=== PATIENT | female | born 1945 | race African-American/Black ===

== ENCOUNTER 2017-11-09 06:20 | Observation (INO) ==
[2017-11-09] MEDS ORDERED: DIAZEPAM 5 MG TABLET PO ONE (07:10)
[2017-11-09 07:27] LABS: Basophils # 0.1 10*3/uL (0.0-0.2); Basophils % 0.9 % (0.0-0.8); Eosinophils # 0.1 10*3/uL (0.0-0.87); Eosinophils % 1.7 % (0.00-10.9); Hematocrit 34.4 VOL% (35.7-47.0); Hemoglobin 11.4 GM/DL (12.0-16.0); Immature Granulocytes % 0.2 %; Immature Granulocytes Absolute 0.01 #; Lymphocytes # 2.1 10*3/uL (1.4-4.0); Lymphocytes % 38.8 % (21.3-54.2); Mean Corpuscular HGB Conc 33.1 GM/DL (32-36); Mean Corpuscular Hemoglobin 32 PG (27-34); Mean Corpuscular Volume 95.8 FL (87-102); Mean Platelet Volume 9.9 FL (9.6-12.0); Monocytes # 0.3 10*3/uL (0.11-0.8); Monocytes % 5.9 % (1.7-12.7); Neutrophils # 2.8 10*3/uL (1.4-7.4); Neutrophils % 52.5 % (38.7-73.9); Platelet Count 213 T/CUMM (130-400); Red Blood Count 3.59 MC/CUMM (3.8-5.5); White Blood Count 5.3 T/CUMM (4-12)
[2017-11-09] MEDS ORDERED: SODIUM CHLORIDE 0.45% 1,000 ML IV SCH (07:30)
[2017-11-09 07:35] LABS: INR 0.9
[2017-11-09] MEDS ORDERED: DIAZEPAM 5 MG TABLET ONE (08:42)
[2017-11-09] MEDS: SODIUM CHLORIDE 0.45% 1,000 ML IV SCH (08:55)
[2017-11-10 07:25] VITALS: BP 133/82
[2017-11-10] MEDS: SODIUM CHLORIDE 0.45% 1,000 ML IV SCH (10:48)
== END 2017-11-10 11:29 | disposition home or self-care (01) ==
LOC: N.5E 06:20 → N.RAD 06:20 → N.SDSINP 06:22 → N.5E 17:35
PROVIDERS: ADMIT Radiology Diagnostic Radiology; ATTEND Radiology Diagnostic Radiology

== ENCOUNTER 2017-12-07 04:00 | Inpatient (IN) ==
[2017-12-05 11:34] LABS: Basophils # 0.1 10*3/uL (0.0-0.2); Basophils % 1.6 % (0.0-0.8); Eosinophils # 0.1 10*3/uL (0.0-0.87); Eosinophils % 2.3 % (0.00-10.9); Hematocrit 36.6 VOL% (35.7-47.0); Hemoglobin 12.1 GM/DL (12.0-16.0); Immature Granulocytes % 0.2 %; Immature Granulocytes Absolute 0.01 #; Lymphocytes # 2.1 10*3/uL (1.4-4.0); Lymphocytes % 42.8 % (21.3-54.2); Mean Corpuscular HGB Conc 33.1 GM/DL (32-36); Mean Corpuscular Hemoglobin 32 PG (27-34); Mean Corpuscular Volume 97.6 FL (87-102); Mean Platelet Volume 9.6 FL (9.6-12.0); Monocytes # 0.4 10*3/uL (0.11-0.8); Monocytes % 7.2 % (1.7-12.7); Neutrophils # 2.2 10*3/uL (1.4-7.4); Neutrophils % 45.9 % (38.7-73.9); Platelet Count 223 T/CUMM (130-400); Red Blood Count 3.75 MC/CUMM (3.8-5.5); Red Cell Distribution Width 12.5 % (9.3-17.3); White Blood Count 4.9 T/CUMM (4-12)
[2017-12-05 11:46] LABS: INR 0.9; Partial Thromboplastin Time 24.7 SECS (0-40)
[2017-12-05 11:58] LABS: Apearance,Urine Slightly Hazy (Clear); Bacteria,Urine Moderate /HPF (Few); Bilirubin,Urine Negative (Negative); Blood, Urine Negative (Negative); Glucose,Urine (UA) Negative (Negative); Ketones,Urine Negative (Negative); Mucus,Urine Occasional /LPF (Occasional); Nitrite,Urine Negative (Negative); Protein,Urine Negative; RBC,Urine 1 /HPF (0-4); Squamous Epithelial Cell,Urine Occasional /HPF (0-10); Urine Color Yellow (Yellow); Urine Specific Gravity 1.015 (1.001-1.035); Urine Urobilinogen < 2.0 EU/DL (0.2-1.0); WBC,Urine 3 /HPF (0-6)
[2017-12-05 12:07] LABS: Calcium 8.4 MG/DL (8.5-10.1)
[~2017-12-07 04:00] MED LIST: SODIUM CHLORIDE 0.9% 1,000 ML IV PRN
[2017-12-07] MEDS ORDERED: TISSUE ADHESIVE 1 EACH APPLICATOR TOP ONE (06:13)
[2017-12-07] MEDS ORDERED: BUPIVACAINE LIPOSOMAL 20 ML/266 MG VIAL ONE (06:13)
[2017-12-07] MEDS ORDERED: LACTATED RINGERS 1,000 ML IV SCH (06:30)
[2017-12-07] MEDS ORDERED: FAMOTIDINE 20 MG TABLET PO ONE (06:40)
[2017-12-07] MEDS ORDERED: DIAZEPAM 5 MG TABLET PO ONE (06:40)
[2017-12-07] MEDS ORDERED: FAMOTIDINE 20 MG TABLET ONE (06:48)
[2017-12-07] MEDS ORDERED: DIAZEPAM 5 MG TABLET ONE (06:48)
[2017-12-07] MEDS ORDERED: ACETAMINOPHEN INJ 1,000 MG in PREMIX 1 EACH IV ONE (06:50)
[2017-12-07] MEDS ORDERED: CEFUROXIME INJ 1,500 MG in SYRINGE 1 EACH IV ONE (06:50)
[2017-12-07] MEDS ORDERED: ACETAMINOPHEN 1,000 MG/100 ML VIAL IV ONE (06:57)
[2017-12-07] MEDS ORDERED: CEFUROXIME 1,500 MG VIAL ONE (06:57)
[2017-12-07] MEDS ORDERED: fentaNYL 100 MCG/2 ML VIAL ONE ×2 (11:16→11:17)
[2017-12-07] MEDS ORDERED: PROPOFOL 200 MG/20 ML VIAL IV ONE (11:16)
[2017-12-07] MEDS ORDERED: ROCURONIUM 100 MG/10 ML VIAL IV ONE (11:17)
[2017-12-07] MEDS ORDERED: ONDANSETRON 4 MG/2 ML VIAL ONE (11:17)
[2017-12-07] MEDS ORDERED: MIDAZOLAM 2 MG/2 ML VIAL ONE (11:17)
[2017-12-07] MEDS ORDERED: DEXAMETHASONE 10 MG/1 ML VIAL ONE (11:17)
[2017-12-07] MEDS ORDERED: PHENYLEPHRINE 1 MG/10 ML SYRINGE IV ONE (11:17)
[2017-12-07 12:52] LABS: ABG Base Excess 1.6 MMOL/L (-2.5-2.5); ABG HCO3 25.9 MMOL/L (20-26); ABG Oxygen Saturation 99.8 % (95-100); ABG PCO2 44.2 MM HG (35-48); ABG PH 7.392 (7.35-7.45); ABG TCO2 24.1 MMOL/L (23-27); Glucose Heart Surgery 170 MG/DL (74-106); Hematocrit Heart Surgery 34.2 PERCENT (37-47); Hemoglobin Heart Surgery 11.1 G/DL (12.0-16.0); Potassium Heart/CVR 3.5 MMOL/L (3.5-5.1)
[2017-12-07] MEDS ORDERED: LACTATED RINGERS 2,000 ML IV ONE (13:18)
[2017-12-07] MEDS ORDERED: PHENYLEPHRINE 10 MG/1 ML VIAL IV ONE (13:18)
[2017-12-07] MEDS ORDERED: LABETALOL 100 MG/20 ML VIAL IV ONE (13:18)
[2017-12-07] MEDS ORDERED: SEVOFLURANE 1 UNIT/15 MINUTE INH ONE (13:18)
[2017-12-07] MEDS ORDERED: SODIUM CHLORIDE 0.9% 200 ML IV ONE (13:18)
[2017-12-07] MEDS ORDERED: ONDANSETRON 4 MG/2 ML VIAL IV PRN ×2 (13:24→13:42)
[2017-12-07] MEDS ORDERED: HYDROmorphone 2 MG/1 ML VIAL ONE (13:30)
[2017-12-07] MEDS: HYDROmorphone 2 MG/1 ML VIAL IV PRN ×2 (13:33→13:40)
[2017-12-07 13:52] LABS: Apearance,Urine CLEAR (Clear); Bilirubin,Urine Negative (Negative); Blood, Urine Negative (Negative); Glucose,Urine (UA) Negative (Negative); Ketones,Urine Negative (Negative); Mucus,Urine Occasional /LPF (Occasional); Nitrite,Urine Negative (Negative); Protein,Urine Negative; Urine Color Straw (Yellow); Urine Specific Gravity 1.005 (1.001-1.035); Urine Urobilinogen < 2.0 EU/DL (0.2-1.0); WBC,Urine <1 /HPF (0-6)
[2017-12-07 14:12] LABS: Basophils % 0.2 % (0.0-0.8); Hematocrit 41.2 VOL% (35.7-47.0); Hemoglobin 13.6 GM/DL (12.0-16.0); Immature Granulocytes % 0.4 %; Immature Granulocytes Absolute 0.07 #; Lymphocytes # 1.4 10*3/uL (1.4-4.0); Lymphocytes % 8.6 % (21.3-54.2); Mean Corpuscular Hemoglobin 31 PG (27-34); Mean Corpuscular Volume 94.5 FL (87-102); Monocytes # 0.5 10*3/uL (0.11-0.8); Monocytes % 3.1 % (1.7-12.7); Neutrophils # 14.6 10*3/uL (1.4-7.4); Neutrophils % 87.7 % (38.7-73.9); Platelet Count 204 T/CUMM (130-400); Red Blood Count 4.36 MC/CUMM (3.8-5.5); Red Cell Distribution Width 14.2 % (9.3-17.3); White Blood Count 16.7 T/CUMM (4-12)
[2017-12-07 14:48] LABS: Osmolality,Calculated 287.4 MOS/KG (273-304); Potassium 3.7 MMOL/L (3.5-5.1)
[2017-12-07] MEDS: KETOROLAC 15 MG/1 ML VIAL IV SCH ×2 (15:53→21:21)
[2017-12-07] MEDS: GABAPENTIN 100 MG CAPSULE PO SCH ×2 (15:54→21:20)
[2017-12-07] MEDS: CEFUROXIME INJ 1,500 MG in SYRINGE 1 EACH IV SCH (21:22)
[2017-12-07] MEDS: ACETAMINOPHEN INJ 1,000 MG in PREMIX 1 EACH IV SCH (22:00)
[2017-12-08] MEDS: KETOROLAC 15 MG/1 ML VIAL IV SCH ×4 (01:54→21:11)
[2017-12-08] MEDS: ACETAMINOPHEN INJ 1,000 MG in PREMIX 1 EACH IV SCH (01:54)
[2017-12-08 04:42] LABS: Basophils % 0.1 % (0.0-0.8); Hematocrit 35.8 VOL% (35.7-47.0); Hemoglobin 12.4 GM/DL (12.0-16.0); Immature Granulocytes % 0.3 %; Immature Granulocytes Absolute 0.04 #; Lymphocytes # 2.5 10*3/uL (1.4-4.0); Lymphocytes % 18.5 % (21.3-54.2); Mean Corpuscular HGB Conc 34.6 GM/DL (32-36); Mean Corpuscular Hemoglobin 31 PG (27-34); Mean Corpuscular Volume 89.7 FL (87-102); Mean Platelet Volume 9.8 FL (9.6-12.0); Monocytes # 0.6 10*3/uL (0.11-0.8); Monocytes % 4.7 % (1.7-12.7); Neutrophils # 10.3 10*3/uL (1.4-7.4); Neutrophils % 76.4 % (38.7-73.9); Platelet Count 194 T/CUMM (130-400); Red Blood Count 3.99 MC/CUMM (3.8-5.5); Red Cell Distribution Width 14.8 % (9.3-17.3); White Blood Count 13.5 T/CUMM (4-12)
[2017-12-08 04:49] LABS: Calcium 7.6 MG/DL (8.5-10.1); Osmolality,Calculated 285.3 MOS/KG (273-304); Potassium 4.1 MMOL/L (3.5-5.1)
[2017-12-08] MEDS ORDERED: traMADol 50 MG TABLET PO PRN (06:00)
[2017-12-08] MEDS: GABAPENTIN 100 MG CAPSULE PO SCH ×3 (09:58→21:08)
[2017-12-08] MEDS: ACETAMINOPHEN 500 MG TABLET PO SCH ×3 (09:58→21:08)
[2017-12-08] MEDS: PANTOPRAZOLE 40 MG VIAL IV SCH (09:59)
[2017-12-08] MEDS: CEFUROXIME INJ 1,500 MG in SYRINGE 1 EACH IV SCH (09:59)
[2017-12-09] MEDS: ACETAMINOPHEN 500 MG TABLET PO SCH ×4 (03:09→20:42)
[2017-12-09] MEDS: KETOROLAC 15 MG/1 ML VIAL IV SCH ×2 (03:09→08:27)
[2017-12-09 05:00] LABS: Basophils # 0.1 10*3/uL (0.0-0.2); Basophils % 0.7 % (0.0-0.8); Eosinophils # 0.2 10*3/uL (0.0-0.87); Eosinophils % 2.6 % (0.00-10.9); Hematocrit 32.7 VOL% (35.7-47.0); Hemoglobin 10.9 GM/DL (12.0-16.0); Immature Granulocytes % 0.4 %; Immature Granulocytes Absolute 0.03 #; Lymphocytes # 2.3 10*3/uL (1.4-4.0); Lymphocytes % 27.9 % (21.3-54.2); Mean Corpuscular HGB Conc 33.3 GM/DL (32-36); Mean Corpuscular Hemoglobin 30 PG (27-34); Mean Corpuscular Volume 91.3 FL (87-102); Mean Platelet Volume 10.5 FL (9.6-12.0); Monocytes # 0.5 10*3/uL (0.11-0.8); Monocytes % 5.4 % (1.7-12.7); Neutrophils # 5.3 10*3/uL (1.4-7.4); Platelet Count 158 T/CUMM (130-400); Red Blood Count 3.58 MC/CUMM (3.8-5.5); Red Cell Distribution Width 14.6 % (9.3-17.3); White Blood Count 8.4 T/CUMM (4-12)
[2017-12-09 05:15] LABS: Calcium 7.6 MG/DL (8.5-10.1); Osmolality,Calculated 281.7 MOS/KG (273-304); Potassium 3.5 MMOL/L (3.5-5.1)
[2017-12-09] MEDS: PANTOPRAZOLE 40 MG VIAL IV SCH (08:26)
[2017-12-09] MEDS: GABAPENTIN 100 MG CAPSULE PO SCH ×3 (08:27→20:42)
[2017-12-09] MEDS: DOCUSATE SODIUM 100 MG CAPSULE PO SCH (20:55)
[2017-12-10] MEDS: ACETAMINOPHEN 500 MG TABLET PO SCH ×4 (01:43→20:56)
[2017-12-10] MEDS: CELECOXIB 200 MG CAPSULE PO SCH ×3 (01:44→20:56)
[2017-12-10 06:03] LABS: Basophils # 0.1 10*3/uL (0.0-0.2); Basophils % 0.9 % (0.0-0.8); Eosinophils # 0.3 10*3/uL (0.0-0.87); Eosinophils % 4.1 % (0.00-10.9); Hemoglobin 10.5 GM/DL (12.0-16.0); Immature Granulocytes % 0.5 %; Immature Granulocytes Absolute 0.03 #; Lymphocytes # 1.9 10*3/uL (1.4-4.0); Lymphocytes % 29.6 % (21.3-54.2); Mean Corpuscular HGB Conc 33.9 GM/DL (32-36); Mean Corpuscular Hemoglobin 31 PG (27-34); Mean Platelet Volume 10.5 FL (9.6-12.0); Monocytes # 0.4 10*3/uL (0.11-0.8); Monocytes % 6.7 % (1.7-12.7); Neutrophils # 3.7 10*3/uL (1.4-7.4); Neutrophils % 58.2 % (38.7-73.9); Platelet Count 162 T/CUMM (130-400); Red Blood Count 3.37 MC/CUMM (3.8-5.5); Red Cell Distribution Width 14.2 % (9.3-17.3); White Blood Count 6.4 T/CUMM (4-12)
[2017-12-10 06:16] LABS: Calcium 7.3 MG/DL (8.5-10.1); Osmolality,Calculated 283.4 MOS/KG (273-304); Potassium 3.7 MMOL/L (3.5-5.1)
[2017-12-10] MEDS: PANTOPRAZOLE 40 MG VIAL IV SCH (08:46)
[2017-12-10] MEDS: GABAPENTIN 100 MG CAPSULE PO SCH ×3 (08:48→20:56)
[2017-12-10] MEDS ORDERED: BISACODYL 5 MG TABLET PO PRN (11:09)
[2017-12-10] MEDS: DOCUSATE SODIUM 100 MG CAPSULE PO SCH ×3 (12:30→20:56)
[2017-12-11] MEDS: ACETAMINOPHEN 500 MG TABLET PO SCH ×2 (02:22→08:43)
[2017-12-11 07:57] VITALS: BP 149/80
[2017-12-11] MEDS: CELECOXIB 200 MG CAPSULE PO SCH (08:43)
[2017-12-11] MEDS: DOCUSATE SODIUM 100 MG CAPSULE PO SCH (08:43)
[2017-12-11] MEDS: GABAPENTIN 100 MG CAPSULE PO SCH (08:43)
[2017-12-11] MEDS: PANTOPRAZOLE 40 MG VIAL IV SCH (08:43)
== END 2017-12-11 13:31 | disposition home health service (06) | DRG 165 ==
LOC: N.SDSINP 05:18 → N.ICU 15:05 → N.TELES 12-08 14:20
PROVIDERS: ADMIT Thoracic Surgery (Cardiothoracic Vascular Surgery); ATTEND Thoracic Surgery (Cardiothoracic Vascular Surgery)

== ENCOUNTER 2018-06-08 10:42 | Inpatient (IN) ==
[2018-06-08] MEDS ORDERED: PANTOPRAZOLE 40 MG VIAL IV STA (11:13)
[2018-06-08 11:58] LABS: Basophils # 0.1 10*3/uL (0.0-0.2); Basophils % 1.6 % (0.0-0.8); Eosinophils # 0.1 10*3/uL (0.0-0.87); Eosinophils % 1.8 % (0.00-10.9); Hematocrit 34.2 VOL% (35.7-47.0); Hemoglobin 11.1 GM/DL (12.0-16.0); Immature Granulocytes % 0.4 %; Immature Granulocytes Absolute 0.02 #; Lymphocytes # 1.5 10*3/uL (1.4-4.0); Mean Corpuscular HGB Conc 32.5 GM/DL (32-36); Mean Corpuscular Hemoglobin 31 PG (27-34); Mean Corpuscular Volume 96.9 FL (87-102); Mean Platelet Volume 9.2 FL (9.6-12.0); Monocytes # 0.3 10*3/uL (0.11-0.8); Monocytes % 6.9 % (1.7-12.7); Neutrophils # 2.9 10*3/uL (1.4-7.4); Neutrophils % 59.3 % (38.7-73.9); Platelet Count 277 T/CUMM (130-400); Red Blood Count 3.53 MC/CUMM (3.8-5.5); Red Cell Distribution Width 14.8 % (9.3-17.3); White Blood Count 4.9 T/CUMM (4-12)
[2018-06-08 12:06] LABS: PT Patient Result 10.5 SECS; Partial Thromboplastin Time 24.1 SECS (0-40)
[2018-06-08 12:17] LABS: Alanine Aminotransferase 16 U/L (13-56); Alkaline Phosphatase 49 U/L (45-117); Aspartate Amino Transferase 16 U/L (0-37); Bilirubin,Total < 0.39 MG/DL (0.2-1.0); Blood Urea Nitrogen 13 MG/DL (7-18); Calcium 8.9 MG/DL (8.5-10.1); Glucose 97 MG/DL (74-106); Osmolality,Calculated 280.3 MOS/KG (273-304); Potassium 3.1 MMOL/L (3.5-5.1); Sodium 141 MMOL/L (136-145)
[2018-06-08] MEDS ORDERED: ONDANSETRON 4 MG/2 ML VIAL IV PRN (14:43)
[2018-06-08] MEDS ORDERED: POTASSIUM CHLORIDE 10 MEQ TABLET PO SCH (15:00)
[2018-06-08] MEDS: SODIUM CHLORIDE 0.9% 1,000 ML IV SCH (16:34)
[2018-06-08 18:52] LABS: Apearance,Urine CLEAR (Clear); Bacteria,Urine Occasional /HPF (Few); Bilirubin,Urine Negative (Negative); Blood, Urine Negative (Negative); Glucose,Urine (UA) Negative (Negative); Ketones,Urine 5 mg/dL (Negative); Nitrite,Urine Negative (Negative); Protein,Urine Negative; RBC,Urine 1 /HPF (0-4); Squamous Epithelial Cell,Urine Occasional /HPF (0-10); Urine Color Straw (Yellow); Urine Specific Gravity 1.008 (1.001-1.035); Urine Urobilinogen < 2.0 EU/DL (0.2-1.0); WBC,Urine 1 /HPF (0-6)
[2018-06-08] MEDS: PANTOPRAZOLE 40 MG VIAL IV SCH (20:10)
[2018-06-09] MEDS: SODIUM CHLORIDE 0.9% 1,000 ML IV SCH ×3 (00:37→16:18)
[2018-06-09 04:45] LABS: Basophils # 0.1 10*3/uL (0.0-0.2); Basophils % 1.9 % (0.0-0.8); Eosinophils # 0.1 10*3/uL (0.0-0.87); Eosinophils % 2.7 % (0.00-10.9); Hematocrit 29.2 VOL% (35.7-47.0); Hemoglobin 9.3 GM/DL (12.0-16.0); Immature Granulocytes % 0.2 %; Immature Granulocytes Absolute 0.01 #; Lymphocytes # 1.4 10*3/uL (1.4-4.0); Lymphocytes % 26.7 % (21.3-54.2); Mean Corpuscular HGB Conc 31.8 GM/DL (32-36); Mean Corpuscular Hemoglobin 31 PG (27-34); Mean Corpuscular Volume 98.3 FL (87-102); Mean Platelet Volume 9.6 FL (9.6-12.0); Monocytes # 0.4 10*3/uL (0.11-0.8); Neutrophils # 3.2 10*3/uL (1.4-7.4); Neutrophils % 60.5 % (38.7-73.9); Platelet Count 237 T/CUMM (130-400); Red Blood Count 2.97 MC/CUMM (3.8-5.5); Red Cell Distribution Width 14.6 % (9.3-17.3); White Blood Count 5.3 T/CUMM (4-12)
[2018-06-09 04:52] LABS: PT Patient Result 10.8 SECS
[2018-06-09 05:16] LABS: Osmolality,Calculated 284.8 MOS/KG (273-304); Potassium 3.1 MMOL/L (3.5-5.1); Risk Ratio 3.83; Thyroid Stimulating Hormone 3.65 uIU/ml (0.358-3.74)
[2018-06-09] MEDS ORDERED: FUROSEMIDE 20 MG/2 ML VIAL IV PRN (06:57)
[2018-06-09] MEDS ORDERED: SODIUM CHLORIDE 0.9% 1,000 ML IV PRN (06:57)
[2018-06-09] MEDS ORDERED: diphenhydrAMINE 50 MG/1 ML VIAL IV PRN (06:57)
[2018-06-09] MEDS ORDERED: POTASSIUM CHLORIDE RIDER 10 MEQ in PREMIX 1 EACH IV PRN (08:24)
[2018-06-09] MEDS: PANTOPRAZOLE 40 MG VIAL IV SCH ×2 (09:58→20:56)
[2018-06-09] MEDS: OLMESARTAN 20 MG TABLET PO SCH (09:58)
[2018-06-09] MEDS: hydroCHLOROthiazide 12.5 MG CAPSULE PO SCH (09:59)
[2018-06-09] MEDS: POTASSIUM CHLORIDE 20 MEQ/15 ML UDCUP PO SCH ×2 (09:59→10:08)
[2018-06-09] MEDS: POTASSIUM CHLORIDE 20 MEQ TABLET PO SCH (11:13)
[2018-06-10] MEDS: SODIUM CHLORIDE 0.9% 1,000 ML IV SCH (04:04)
[2018-06-10 05:58] LABS: Basophils # 0.1 10*3/uL (0.0-0.2); Eosinophils # 0.3 10*3/uL (0.0-0.87); Eosinophils % 6.7 % (0.00-10.9); Hematocrit 28.8 VOL% (35.7-47.0); Hemoglobin 9.2 GM/DL (12.0-16.0); Immature Granulocytes % 0.2 %; Immature Granulocytes Absolute 0.01 #; Lymphocytes # 1.5 10*3/uL (1.4-4.0); Mean Corpuscular HGB Conc 31.9 GM/DL (32-36); Mean Corpuscular Hemoglobin 31 PG (27-34); Mean Platelet Volume 9.5 FL (9.6-12.0); Monocytes # 0.4 10*3/uL (0.11-0.8); Monocytes % 8.7 % (1.7-12.7); Neutrophils # 2.3 10*3/uL (1.4-7.4); Neutrophils % 49.4 % (38.7-73.9); Platelet Count 228 T/CUMM (130-400); Red Blood Count 2.94 MC/CUMM (3.8-5.5); Red Cell Distribution Width 14.6 % (9.3-17.3); White Blood Count 4.6 T/CUMM (4-12)
[2018-06-10 06:09] LABS: PT Patient Result 10.7 SECS
[2018-06-10 06:22] LABS: Calcium 7.9 MG/DL (8.5-10.1); Osmolality,Calculated 287.6 MOS/KG (273-304); Potassium 3.1 MMOL/L (3.5-5.1)
[2018-06-10] MEDS ORDERED: POTASSIUM CHLORIDE 20 MEQ TABLET PO ONE (09:07)
[2018-06-10] MEDS ORDERED: MAGNESIUM SULF RIDER 2 GM in PREMIX 1 EACH IV ONE (09:08)
[2018-06-10] MEDS: PANTOPRAZOLE 40 MG VIAL IV SCH ×2 (09:44→20:27)
[2018-06-10] MEDS: OLMESARTAN 20 MG TABLET PO SCH (09:45)
[2018-06-10] MEDS: hydroCHLOROthiazide 12.5 MG CAPSULE PO SCH (09:45)
[2018-06-10] MEDS: SODIUM CHLORIDE 0.45% 1,000 ML IV SCH ×2 (09:46→23:06)
[2018-06-10] MEDS: POTASSIUM CHLORIDE 20 MEQ TABLET PO SCH (09:46)
[2018-06-10] MEDS: POTASSIUM CHLORIDE 20 MEQ/15 ML UDCUP PO SCH (09:53)
[2018-06-10] MEDS ORDERED: hydroCHLOROthiazide 12.5 MG CAPSULE PO SCH (12:01)
[2018-06-11 05:10] LABS: Basophils # 0.1 10*3/uL (0.0-0.2); Basophils % 1.1 % (0.0-0.8); Eosinophils # 0.4 10*3/uL (0.0-0.87); Eosinophils % 6.3 % (0.00-10.9); Hematocrit 30.9 VOL% (35.7-47.0); Hemoglobin 9.7 GM/DL (12.0-16.0); Immature Granulocytes % 0.2 %; Immature Granulocytes Absolute 0.01 #; Lymphocytes # 1.6 10*3/uL (1.4-4.0); Mean Corpuscular HGB Conc 31.4 GM/DL (32-36); Mean Corpuscular Hemoglobin 31 PG (27-34); Mean Corpuscular Volume 98.1 FL (87-102); Mean Platelet Volume 9.6 FL (9.6-12.0); Monocytes # 0.5 10*3/uL (0.11-0.8); Monocytes % 7.7 % (1.7-12.7); Neutrophils # 3.8 10*3/uL (1.4-7.4); Neutrophils % 59.7 % (38.7-73.9); Platelet Count 239 T/CUMM (130-400); Red Blood Count 3.15 MC/CUMM (3.8-5.5); Red Cell Distribution Width 14.7 % (9.3-17.3); White Blood Count 6.4 T/CUMM (4-12)
[2018-06-11 05:34] LABS: Calcium 8.2 MG/DL (8.5-10.1); Calcium 8.3 MG/DL (8.5-10.1); Osmolality,Calculated 279.1 MOS/KG (273-304); PT Patient Result 10.7 SECS; Potassium 3.2 MMOL/L (3.5-5.1); Potassium 3.3 MMOL/L (3.5-5.1)
[2018-06-11] MEDS: PANTOPRAZOLE 40 MG VIAL IV SCH ×2 (08:56→20:30)
[2018-06-11] MEDS: OLMESARTAN 20 MG TABLET PO SCH (08:56)
[2018-06-11] MEDS: hydroCHLOROthiazide 12.5 MG CAPSULE PO SCH (08:56)
[2018-06-11] MEDS ORDERED: PROPOFOL 200 MG/20 ML VIAL IV ONE (09:00)
[2018-06-11] MEDS ORDERED: LIDOCAINE 2% 5 ML VIAL ONE (09:00)
[2018-06-11] MEDS: POTASSIUM CHLORIDE 20 MEQ TABLET PO SCH (09:41)
[2018-06-11] MEDS: SODIUM CHLORIDE 0.45% 1,000 ML IV SCH (14:37)
[2018-06-11] MEDS ORDERED: BISACODYL 5 MG TABLET PO ONE (16:00)
[2018-06-11] MEDS ORDERED: POLYETHYLENE GLYCOL POWDER 255 GM BOTTLE PO ONE (18:00)
[2018-06-12] MEDS: SODIUM CHLORIDE 0.45% 1,000 ML IV SCH (05:32)
[2018-06-12] MEDS ORDERED: MAGNESIUM CITRATE 300 ML BOTTLE PO ONE (06:00)
[2018-06-12 08:22] LABS: Basophils # 0.1 10*3/uL (0.0-0.2); Basophils % 1.3 % (0.0-0.8); Eosinophils # 0.3 10*3/uL (0.0-0.87); Eosinophils % 5.6 % (0.00-10.9); Hematocrit 31.1 VOL% (35.7-47.0); Immature Granulocytes % 0.2 %; Immature Granulocytes Absolute 0.01 #; Lymphocytes # 1.1 10*3/uL (1.4-4.0); Lymphocytes % 25.1 % (21.3-54.2); Mean Corpuscular HGB Conc 32.2 GM/DL (32-36); Mean Corpuscular Hemoglobin 31 PG (27-34); Mean Corpuscular Volume 97.8 FL (87-102); Mean Platelet Volume 9.6 FL (9.6-12.0); Monocytes # 0.3 10*3/uL (0.11-0.8); Monocytes % 7.1 % (1.7-12.7); Neutrophils # 2.7 10*3/uL (1.4-7.4); Neutrophils % 60.7 % (38.7-73.9); Platelet Count 236 T/CUMM (130-400); Red Blood Count 3.18 MC/CUMM (3.8-5.5); Red Cell Distribution Width 14.6 % (9.3-17.3); White Blood Count 4.5 T/CUMM (4-12)
[2018-06-12 08:33] LABS: Calcium 8.4 MG/DL (8.5-10.1); Osmolality,Calculated 275.4 MOS/KG (273-304); Potassium 2.8 MMOL/L (3.5-5.1)
[2018-06-12] MEDS ORDERED: PHENYLEPHRINE 1 MG/10 ML SYRINGE IV ONE (09:00)
[2018-06-12] MEDS ORDERED: LIDOCAINE 100 MG/5 ML SYRINGE ONE (09:00)
[2018-06-12] MEDS ORDERED: PROPOFOL 200 MG/20 ML VIAL IV ONE (09:00)
[2018-06-12] MEDS ORDERED: POTASSIUM CHLORIDE 20 MEQ TABLET PO SCH (10:53)
[2018-06-12] MEDS: OLMESARTAN 20 MG TABLET PO SCH ×2 (11:14→13:54)
[2018-06-12] MEDS: hydroCHLOROthiazide 12.5 MG CAPSULE PO SCH ×2 (11:14→13:54)
[2018-06-12] MEDS: POTASSIUM CHLORIDE 20 MEQ TABLET PO SCH (11:16)
[2018-06-12] MEDS: PANTOPRAZOLE 40 MG VIAL IV SCH (11:48)
[2018-06-12 15:39] VITALS: BP 168/97
== END 2018-06-12 16:20 | disposition home or self-care (01) | DRG 379 ==
LOC: N.ED 10:42 → N.EDINP 14:29 → N.4E 15:55
PROVIDERS: ADMIT Internal Medicine; ATTEND Internal Medicine